=== PATIENT | female | born 1960 | race Caucasian/White ===

== ENCOUNTER 2017-12-28 18:29 | Emergency (ER) | payer BC ==
[2017-12-28 19:10] VITALS: BP 151/84
--- NOTE | 2017-12-28 19:15 | UC ---
Skin Complaint HPI - HPI Summary HPI Summary: Pt presents with rash to right forearm. She tells me that yesterday she was gardening and a cocoon got squished on his arm. She scrubbed it vigorously with soap and wash. Today noticed redness and itching to the area this morning. Denies fever, chills, drainage, or bleeding. - History of Current Complaint [facility] Time Seen by Provider: 12/28/17 19:14 Stated Complaint: SKIN COMPLAINT - RT FOREARM Hx Obtained From: Patient Onset/Duration: Sudden Onset Skin Exposure Onset/Duration: Hours Ago Onset Severity: Mild Current Severity: Moderate Pain Intensity: 5 Pain Scale Used: 0-10 Numeric - Allergy/Home Medications Allergies/Adverse Reactions: Allergies Allergy/AdvReac Type Severity Reaction Status Date / Time No Known Allergies Allergy Verified 05/26/15 09:47 Home Medications: Home Medications Ranitidine HCl (Nf) [Zantac] 75 mg PO Q8HR 12/28/17 [History Confirmed 12/28/17] Review of Systems Constitutional: Negative Skin: Rash Respiratory: Negative Cardiovascular: Negative Neurovascular: Negative Neurological: Negative Psychological: Negative All Other Systems Reviewed And Are Negative: Yes PMH/Surg Hx/FS Hx/Imm Hx Previously Healthy: Yes GI/ History: Gastroesophageal Reflux - Surgical History Surgical History: Yes Surgery Procedure, Year, and Place: LEFT KNEE REPLACEMENT - Family History Known Family History: Positive: Hypertension - Social History Occupation: Employed Full-time Lives: With Family Alcohol Use: Occasionally Substance Use Type: None Smoking Status (MU): Former Smoker When Did the Patient Quit Smoking/Using Tobacco: 1989 Physical Exam - Summary Physical Exam Summary: GENERAL: NAD. WDWN. No pain distress. SKIN: 2.0cm mildly erythematous and slightly raised patch on right distal 1/3 dorsal forearm. Mildly TTP. No streaking, drainage, or open wound. NECK: Supple. Nontender. No lymphadenopathy. CHEST: No accessory muscle use. Breathing comfortably and in no distress. CV: RRR. Without m/r/g. Pulses intact. Brisk cap refill. NEURO: Alert. CN II-XII grossly intact. PSYCH: Age appropriate behavior. Triage Information Reviewed: Yes Vital Signs: Initial Vital Signs Temp 98.3 F 12/28/17 19:01 Pulse 83 12/28/17 19:01 Resp 18 12/28/17 19:01 BP 151/84 12/28/17 19:01 Pulse Ox 99 12/28/17 19:01 Course/Dx - Course Course Of Treatment: Contact dermatitis to right forearm - Diagnoses Provider Diagnoses: Contact dermatitis to right forearm Discharge - Sign-Out/Discharge Documenting (check all that apply): Discharge/Admit/Transfer - Discharge Plan Condition: Stable Disposition: HOME Prescriptions: Cephalexin CAP* [Keflex CAP*] 500 mg PO TID #21 cap predniSONE TAB* [Deltasone TAB*] 50 mg PO DAILY #5 tab Patient Education Materials: Contact Dermatitis (ED) Referrals: SUNNY Paul [Primary Care Provider] - Additional Instructions: If you develop a fever, shortness of breath, chest pain, new or worsening symptoms - please call your PCP or go to the ED. Your blood pressure was high at todays visit. Please see your primary provider within 4 weeks for recheck and re-evaluation. 1) Monitor the area for increased redness, swelling, or drainage - if you develop these, please call or return to Urgent Care. - Billing Disposition and Condition Condition: STABLE Disposition: HOME
== END 2017-12-28 19:25 | disposition home or self-care (01) ==
LOC: UCCORT 18:29
DX: L25.9 Unspecified contact dermatitis, unspecified cause (principal); Z87.891 Personal history of nicotine dependence
CPT/HCPCS: 99212; G0463

== ENCOUNTER 2019-07-11 07:14 | Emergency (ER) | payer BC ==
[2019-07-11 07:30] VITALS: BP 141/70
--- NOTE | 2019-07-11 07:41 | UC ---
Respiratory Complaint HPI - HPI Summary HPI Summary: cough x 4 days cough is dry , harsh , no sputum worse with deep breathing , better with rest nasal congestion , pnd, sinus pain no fever, no chills, no wheezing, no sob - History of Current Complaint Chief Complaint: UCGeneralIllness Stated Complaint: COUGH,CONGESTION,SINUS Time Seen by Provider: 07/11/19 07:24 Hx Obtained From: Patient Onset/Duration: Gradual Onset, Lasting Days - 4, Still Present Timing: Constant Severity Initially: Moderate Severity Currently: Moderate Pain Intensity: 0 Character: Cough: Nonproductive Aggravating Factors: Exertion, Deep Breaths Alleviating Factors: Nothing Associated Signs And Symptoms: Positive: URI, Nasal Congestion, Sinus Discomfort. Negative: Dyspnea, Fever, Chills, Pleuritic Chest Pain, Wheezing, Hemoptysis, Dizziness, Calf Swelling, Edema, Hoarseness - Allergies/Home Medications Allergies/Adverse Reactions: Allergies Allergy/AdvReac Type Severity Reaction Status Date / Time No Known Allergies Allergy Verified 07/11/19 07:22 Home Medications: Home Medications Cholecalciferol TAB* [Vitamin D TAB*] 1 tab PO DAILY 07/11/19 [History Confirmed 07/11/19] Dm/PE/Acetaminophen/Chlorphenr [Mariah-Continental Plus Cld-Cough Cp] 1 tab PO ONCE [History Confirmed 07/11/19] Omeprazole 40 mg PO DAILY 07/11/19 [History Confirmed 07/11/19] PMH/Surg Hx/FS Hx/Imm Hx GI/ History: Gastroesophageal Reflux - Surgical History Surgical History: Yes Surgery Procedure, Year, and Place: Bilateral knee replacements - Family History Known Family History: Positive: Hypertension - Social History Alcohol Use: Occasionally Substance Use Type: None Smoking Status (MU): Former Smoker When Did the Patient Quit Smoking/Using Tobacco: 1989 Review of Systems All Other Systems Reviewed And Are Negative: Yes Constitutional: Positive: Negative Skin: Positive: Negative Eyes: Positive: Negative ENT: Positive: Nasal Discharge, Sinus Congestion, Sinus Pain/Tenderness Respiratory: Positive: Cough Is Patient Immunocompromised?: No Physical Exam Triage Information Reviewed: Yes Appearance: Well-Appearing, No Pain Distress, Well-Nourished Vital Signs: Initial Vital Signs Temp 97.9 F 07/11/19 07:24 Pulse 82 07/11/19 07:24 Resp 14 07/11/19 07:24 BP 141/70 07/11/19 07:24 Pulse Ox 100 07/11/19 07:24 Vital Signs Reviewed: Yes Eye Exam: Normal Eyes: Positive: Conjunctiva Clear ENT: Positive: Normal ENT inspection, Hearing grossly normal, Pharyngeal erythema, Nasal congestion, Nasal drainage, TMs normal. Negative: TM bulging, TM dull, TM red, Sinus tenderness Neck: Positive: Supple, Nontender, No Lymphadenopathy Respiratory: Positive: Chest non-tender, Lungs clear, Normal breath sounds Cardiovascular: Positive: RRR, No Murmur, Pulses Normal Respiratory Course/Dx - Differential Dx/Diagnosis Provider Diagnosis: Bronchitis Discharge ED - Sign-Out/Discharge Documenting (check all that apply): Patient Departure All imaging exams completed and their final reports reviewed: No Studies - Discharge Plan Condition: Stable Disposition: HOME Prescriptions: guaiFENesin/CODIEN 100MG-10MG* [Robitussin AC 100Mg-10Mg*] 10 ml PO Q6H PRN # 120 ml MDD 30 ml PRN Reason: Cough Patient Education Materials: Acute Bronchitis (ED) Referrals: No Primary Care Phys,NOPCP [Primary Care Provider] - 7 Days - Billing Disposition and Condition Condition: STABLE Disposition: Home
== END 2019-07-11 07:42 | disposition home or self-care (01) ==
LOC: UCCORT 07:14
DX: J40 Bronchitis, not specified as acute or chronic (principal); K21.9 Gastro-esophageal reflux disease without esophagitis; J06.9 Acute upper respiratory infection, unspecified; R09.81 Nasal congestion; R09.89 Other specified symptoms and signs involving the circulatory and respiratory systems; Z79.899 Other long term (current) drug therapy; Z87.891 Personal history of nicotine dependence
CPT/HCPCS: 99212; G0463